=== PATIENT | male | born 1980 | race African-American/Black ===

== ENCOUNTER 2018-04-26 13:23 | Emergency (ER) | payer BC ==
[2018-04-26 13:53] VITALS: BP 123/74
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
--- NOTE | 2018-04-26 15:37 | RADIOLOGY REPORT (SQ) ---
EXAM DESCRIPTION: CHEST 2 VIEWS COMPLETED DATE/TIME: 04/26/2018 3:08 pm REASON FOR STUDY: cough congestion short of breath COMPARISON: Chest x-ray 02/16/2014, 07/26/2011. EXAM PARAMETERS: NUMBER OF VIEWS: two views TECHNIQUE: Digital Frontal and Lateral radiographic views of the chest acquired. RADIATION DOSE: NA LIMITATIONS: none FINDINGS: LUNGS AND PLEURA: Postsurgical changes are again noted at the right hemithorax. No consol idation, pleural effusion or pneumothorax. MEDIASTINUM AND HILAR STRUCTURES: No masses or contour abnormalities. HEART AND VASCULAR STRUCTURES: Heart normal size. No evidence for failure. BONES: There are remote right-sided rib fractures. HARDWARE: Surgical clips at the right hemithorax. IMPRESSION: No acute radiographic finding in the chest. TECHNICAL DOCUMENTATION: JOB ID: [id number] 2010 [employer]- All Rights Reserved Reading location - IP/workstation name: [email or web address]
[2018-04-26] MEDS ORDERED: PREDNISONE 20 MG TABLET PO ONE (15:54)
== END 2018-04-26 16:01 | disposition home or self-care (01) ==
LOC: ER 13:23
DX: J06.9 Acute upper respiratory infection, unspecified (principal); R05 Cough; R09.81 Nasal congestion; R06.02 Shortness of breath; M79.10 Myalgia, unspecified site; J34.89 Other specified disorders of nose and nasal sinuses; R09.89 Other specified symptoms and signs involving the circulatory and respiratory systems; Z87.891 Personal history of nicotine dependence; J45.909 Unspecified asthma, uncomplicated
CPT/HCPCS: 99283; 71046; J7512

== ENCOUNTER 2019-04-14 13:27 | Emergency (ER) | payer OTHER, BC ==
[2019-04-14 14:52] VITALS: BP 104/65
[2019-04-14] MEDS ORDERED: OXYCODONE-ACETAMINOPHEN 5-325 MG TABLET PO ONE (15:02)
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
== END 2019-04-14 17:00 | disposition home or self-care (01) ==
LOC: ER 13:27
DX: S16.1XXA Strain of muscle, fascia and tendon at neck level, initial encounter (principal); S29.019A Strain of muscle and tendon of unspecified wall of thorax, initial encounter; S39.012A Strain of muscle, fascia and tendon of lower back, initial encounter; M54.2 Cervicalgia; M54.9 Dorsalgia, unspecified; V69.9XXA Occupant (driver) (passenger) of heavy transport vehicle injured in unspecified traffic accident, initial encounter; J45.909 Unspecified asthma, uncomplicated
CPT/HCPCS: 72070; 72110; 72125; 99284

== ENCOUNTER 2019-09-30 16:09 | Observation (INO) | payer BC, OTHER ==
--- NOTE | 2019-09-30 16:32 | ER Document Report ---
ED NIH Stroke Scale - NIH Stroke Scale When completed:: Before Alteplase *: 1. NIH scale should be completed with appropriate accompanying assessment tools. *: 2. The NIH should reflect what the patient is capable of doing and should not be coached by the clinician. 1a. Level of Consciousness: 0=Alert;keenly responsive -: 1=Drowsy -: 2=Obtunded -: 3=Coma/unresponsive or reflex to noxious stimuli. 1a. Responses: 0 1b. Orientation Questions: a. What month is it? -: b. How old are you? -: 0=Answers both questions correctly. -: 1=Answers one question correctly or patient is intubated or has orotracheal trauma. -: 2=Answers neither question correctly. 1b. Responses: 0 1c. Response to commands: a. Open and close eyes? -: b. Technical Lead and release hand? -: Credit is given despite weakness. Demonstration of task is permitted. Substitute command if hands cannot be used. -: 0=Performs both tasks correctly -: 1=Performs one task correctly -: 2=Performs neither task correctly 1c. Responses: 0 2. Gaze: Establish eye contact and instruct patient to "Follow my finger" -: 0=Normal -: 1=Partial gaze palsy. Gaze is abnormal in one or both eyes, but where forced deviation or total gaze paresis is not present. -: 2=Forced deviation or total gaze paresis. 2. Responses: 0 3. Visual Sy: Sees fingers in all four quadrants. -: 0=No visual loss. -: 1=Partial hemianopsia. -: 2=Complete hemianopsia. -: 3=Bilateral hemianopsia (including Cortical blindness) 3. Responses: 0 4. Facial Movement: Instruct patient to: -: a. Show me your teeth -: b. Raise your eyebrows -: c. Close your eyes -: d. Smile -: 0=Normal symmetrical movement -: 1=Minor paralysis (flattened nasolabial fold, asymmetry on smiling). -: 2=Partial paralysis (total or near total paralysis of lower face). -: 3=Complete paralysis of upper and lower face 4. Responses: 0 5. Motor functions (left arm): Alternate sides and extend each arm with palms down (90 degrees if sitting or 45 degrees for supine). -: 0=No drift;limb holds for full 10 seconds. -: 1=Drift; limb holds but drifts down before full 10 seconds, but does not hit bed. -: 2=Some effort against gravity; limb cannot get to or maintain position. -: 3=No effort against gravity; limb falls. -: 4=No movement. -: UN=Amputation, joint fusion, explain in comments. 5. Responses (left arm): 0 5. Motor Functions (right arm): Alternate sides and extend each arm with palms down (90 degrees if sitting or 45 degrees for supine). -: 0=No drift;limb holds for full 10 seconds. -: 1=Drift; limb holds but drifts down before full 10 seconds, but does not hit bed. -: 2=Some effort against gravity; limb cannot get to or maintain position. -: 3=No effort against gravity; limb falls. -: 4=No movement. -: UN=Amputation, joint fusion, explain in comments. 5. Responses (right arm): 1 6. Motor Functions (left leg): With patient lying supine, alternate sides and extend each leg (30 degrees always while supine). -: 0=No drift, leg holds position for full 5 seconds -: 1=Drift; leg falls before full 5 seconds but does not hit bed. -: 2=Some effort against gravity, leg falls to bed but some effort against gravity. -: 3=No effort against gravity, leg falls to bed immediately. -: 4=No movement. -: UN=Amputation, joint fusion; explain in comments. 6. Responses (left leg): 0 6. Motor Functions (right leg): With patient lying supine, alternate sides and extend each leg (30 degrees always while supine). -: 0=No drift, leg holds position for full 5 seconds -: 1=Drift; leg falls before full 5 seconds but does not hit bed. -: 2=Some effort against gravity, leg falls to bed but some effort against gravity. -: 3=No effort against gravity, leg falls to bed immediately. -: 4=No movement. -: UN=Amputation, joint fusion; explain in comments. 6. Responses (right leg): 1 7. Limb Ataxia: With eyes open instruct patient to: -: a. "Touch your finger to your nose". -: b. "Touch your heel to your bull" -: 0=Absent -: 1=Present in one limb. -: 2=Present in two limbs. -: UN=Amputation or joint fusion; explain in comments. 7. Responses: 1 7. If ataxia present choose as appropriate: Right arm 8. Sensory: Test sensation using pinprick or noxious stimuli. Test as many body parts as possible. -: 0=Normal;no sensory loss -: 1=Mile to moderate sensory loss (patient feels pin prick but is less sharp on affected side). -: 2=Severe or total sensory loss. 8. Responses: 1 9. Best Language: Instruct patient to: -: a. "Describe what you see in this picture." -: b. "Name the items in this picture." -: c. "Read these sentences." -: 0=No aphasia, normal -: 1=Mild to moderate aphasia. -: 2=Severe aphasia -: 3=Mute, global aphasia, no usable speech or auditory comprehension. 9. Responses: 0 10. Articulation, Dysarthia: Instruct patient to: -: "Read these words" or "Repeat these words" -: 0=Normal -: 1=Mild to moderate; patient may slur some words but can be understood without difficulty. -: 2=Severe; patients speech so slurred as to be unintelligible in the absence of dysphasia. -: UN=Intubated or other physical barrier, explain in comments. 10. Responses: 0 11. Extinction or inattention: 0=No abnormality -: 1= Visual, tactile, auditory, spatial, or personal inattention or extinction to bilateral simulation in one or the sensory modalities. -: 2=Profound antonio-inattention or antonio-inattention to more than one modality; does not recognize own hand. Total Score: 4
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
[2019-09-30] MEDS ORDERED: NORMAL SALINE 1000 ML 1,000 ML IV ONE (16:42)
[2019-09-30 17:32] LABS: PARTIAL THROMBOPLASTIN TIME 28.6 SEC (23.5-35.8)
--- NOTE | 2019-09-30 17:36 | RADIOLOGY REPORT (SQ) ---
EXAM DESCRIPTION: CHEST SINGLE VIEW IMAGES COMPLETED DATE/TIME: 09/30/2019 5:20 pm REASON FOR STUDY: HTN, Asthma COMPARISON: None. EXAM PARAMETERS: NUMBER OF VIEWS: One view. TECHNIQUE: Single frontal radiographic view of the chest acquired. RADIATION DOSE: NA LIMITATIONS: None. FINDINGS: LUNGS AND PLEURA: Old rib fractures. No acute infiltrate, effusion, or mass. MEDIASTINUM AND HILAR STRUCTURES: No masses. Contour normal. HEART AND VASCULAR STRUCTURES: Heart normal in size. Normal vasculature. BONES: No acute findings. HARDWARE: Surgical clips. OTHER: No other significant finding. IMPRESSION: Old rib fractures. No acute cardiopulmonary findings. TECHNICAL DOCUMENTATION: JOB ID: [id number] 2010 [employer]- All Rights Reserved Reading location - IP/workstation name: [email or web address]
[2019-09-30 17:39] LABS: INTERNATIONAL RATION (INR) 0.99; PROTHROMBIN TIME 13.1 SEC (11.4-15.4)
[2019-09-30 17:40] LABS: ABSOLUTE EOSINOPHILS # (AUTO) 0.2 10^3/uL (0.0-0.6); ABSOLUTE LYMPHOCYTES (AUTO) 1.5 10^3/uL (0.5-4.7); ABSOLUTE MONOCYTES (AUTO) 0.5 10^3/uL (0.1-1.4); BASOPHILS % (AUTO) 0.9 % (0-2); EOSINOPHILS % (AUTO) 3.7 % (0-6); HEMATOCRIT 42.3 % (37.9-51.0); HEMOGLOBIN 14.5 g/dL (13.5-17.0); LYMPHOCYTES % (AUTO) 36.1 % (13-45); MEAN CORPUSCULAR HEMOGLOBIN 30.8 pg (27.0-33.4); MEAN CORPUSCULAR HGB CONC 34.3 g/dL (32.0-36.0); MEAN CORPUSCULAR VOLUME 90 fl (80-97); MONOCYTES % (AUTO) 12.2 % (3-13); PLATELET COUNT 262 10^3/uL (150-450); RED BLOOD COUNT 4.71 10^6/uL (4.35-5.55); RED CELL DISTRIBUTION WIDTH 12.5 % (11.5-14.0); SEGMENTED NEUTROPHILS % (AUTO) 47.1 % (42-78); TOTAL CELLS COUNTED % (AUTO) 100 %; WHITE BLOOD COUNT 4.2 10^3/uL (4.0-10.5)
--- NOTE | 2019-09-30 17:42 | RADIOLOGY REPORT (SQ) ---
EXAM DESCRIPTION: CT HEAD WITHOUT; CTA HEAD; CTA NECK IMAGES COMPLETED DATE/TIME: 09/30/2019 3:58 pm; 09/30/2019 3:59 pm REASON FOR STUDY: possible stroke possible stroke. COMPARISON: CT cervical spine, 04/14/2019. CT chest, 05/21/2011. TECHNIQUE: Axial images acquired through the brain without and with intravenous contrast. Images re viewed with bone, brain and subdural windows. Additional sagittal and coronal reconstructions were g enerated. Images stored on PACS. CT angio [place] was performed. Thin section postcontrast CT images were reviewed with maxim um intensity projected images of the [place] in multiple orientations. Axial dynamic scanning technique with dynamic contrast enhancement through the extra-cranial carotid and vertebral arteries. Multiplanar reconstruction. 3-D MIPS and Volume-rendered images acquired at the workstation and saved to PACS. Images are reviewed in soft tissue, bone, lung windows. All CT scanners at this facility use dose modulation, iterative reconstruction, and/or weight based d osing when appropriate to reduce radiation dose to as low as reasonably achievable (ALARA). [facility]: Dose Right [facility]: CareDose [facility]: Dose Right [facility]: Teradose 4D [facility]: [id number] CONTRAST TYPE AND DOSE: contrast/concentration: Isovue 350.00 mmol/ml; Total Contrast Delivered: 70. 0 ml; Total Saline Delivered: 56.0 ml RENAL FUNCTION: None required. The patient is less than 50 years old. RADIATION DOSE: CT Rad equipment meets quality standard of care and radiation dose reduction techniq ues were employed. CTDIvol: 16.4 - 53.2 mGy. DLP: 1736 mGy-cm.. LIMITATIONS: None. FINDINGS: VENTRICLES: Normal size and contour. CEREBRUM: No masses. No hemorrhage. No midline shift. No evidence for acute infarction. Normal gra y/white matter differentiation. No areas of low density in the white matter. CEREBELLUM: No masses. No hemorrhage. No alteration of density. No evidence for acute infarction. No enhancing lesions. EXTRA-AXIAL SPACES: No fluid collections. No enhancing lesions. ORBITS AND GLOBE: No intra- or extraconal masses. Normal contour of globe without masses. CALVARIUM: No fracture. PARANASAL SINUSES: No fluid or mucosal thickening. SOFT TISSUES: No mass or hematoma. OTHER: No other significant finding. CTA COW: [place]: The anterior, middle, posterior cerebral arteries are all patent. No evidence of a neurysm or focal stenosis. POSTERIOR CIRCULATION: The distal vertebral arteries are patent as is the basilar artery. No aneurysm . OTHER: No other significant finding. CTA NECK: AORTIC ARCH: Common origin of the right brachiocephalic and left common carotid artery, a normal vari ant. Bilateral subclavian arteries are patent. No dissection. RIGHT CAROTIDS: Patent common, internal and external carotid arteries without suggestion of significa nt stenosis or irregular plaque. No dissection. RIGHT VERTEBRAL: Patent. No dissection. LEFT CAROTIDS: Patent common, internal and external carotid arteries without suggestion of significan t stenosis or irregular plaque. No dissection. LEFT VERTEBRAL: Patent. No dissection. OTHER: A small nodule with surrounding ground-glass attenuation is stable since previous CT of the ne ck in April 2019, and although present on earlier CT of the chest, has increased slightly in [facility] since previous CT chest 05/21/2011. There are surgical clips at the isthmus thyroid gland. Kulwant ateral thyroid lobes have normal homogeneous appearance. OTHER: 3-D reconstructions confirm findings. IMPRESSION: 1. No acute intracranial hemorrhage, mass, or evidence of acute territorial infarct. 2. No intracranial aneurysm, stenosis, or branch occlusion. 3. No significant stenosis of the internal carotid arteries by NASCET criteria. 4. Nodule and ground-glass attenuation in the right upper lobe has increased in prominence since prev ious CT of the chest in 2011. A nonemergent follow-up CT of the chest in recommended for complete ch aracterization and evaluation. EVIDENCE OF ACUTE STROKE: NO. TECHNICAL DOCUMENTATION: JOB ID: [id number] Quality ID # [id number]: Final reports with documentation of one or more dose reduction techniques (e.g., Au tomated exposure control, adjustment of the mA and/or kV according to patient size, use of iterative reconstruction technique) 2010 [employer]- All Rights Reserved Reading location - IP/workstation name: [email or web address]
--- NOTE | 2019-09-30 17:42 | RADIOLOGY REPORT (SQ) ---
EXAM DESCRIPTION: CT HEAD WITHOUT; CTA HEAD; CTA NECK IMAGES COMPLETED DATE/TIME: 09/30/2019 3:58 pm; 09/30/2019 3:59 pm REASON FOR STUDY: possible stroke possible stroke. COMPARISON: CT cervical spine, 04/14/2019. CT chest, 05/21/2011. TECHNIQUE: Axial images acquired through the brain without and with intravenous contrast. Images re viewed with bone, brain and subdural windows. Additional sagittal and coronal reconstructions were g enerated. Images stored on PACS. CT angio [place] was performed. Thin section postcontrast CT images were reviewed with maxim um intensity projected images of the [place] in multiple orientations. Axial dynamic scanning technique with dynamic contrast enhancement through the extra-cranial carotid and vertebral arteries. Multiplanar reconstruction. 3-D MIPS and Volume-rendered images acquired at the workstation and saved to PACS. Images are reviewed in soft tissue, bone, lung windows. All CT scanners at this facility use dose modulation, iterative reconstruction, and/or weight based d osing when appropriate to reduce radiation dose to as low as reasonably achievable (ALARA). [facility]: Dose Right [facility]: CareDose [facility]: Dose Right [facility]: Teradose 4D [facility]: [employer] CONTRAST TYPE AND DOSE: contrast/concentration: Isovue 350.00 mmol/ml; Total Contrast Delivered: 70. 0 ml; Total Saline Delivered: 56.0 ml RENAL FUNCTION: None required. The patient is less than 50 years old. RADIATION DOSE: CT Rad equipment meets quality standard of care and radiation dose reduction techniq ues were employed. CTDIvol: 16.4 - 53.2 mGy. DLP: 1736 mGy-cm.. LIMITATIONS: None. FINDINGS: VENTRICLES: Normal size and contour. CEREBRUM: No masses. No hemorrhage. No midline shift. No evidence for acute infarction. Normal gra y/white matter differentiation. No areas of low density in the white matter. CEREBELLUM: No masses. No hemorrhage. No alteration of density. No evidence for acute infarction. No enhancing lesions. EXTRA-AXIAL SPACES: No fluid collections. No enhancing lesions. ORBITS AND GLOBE: No intra- or extraconal masses. Normal contour of globe without masses. CALVARIUM: No fracture. PARANASAL SINUSES: No fluid or mucosal thickening. SOFT TISSUES: No mass or hematoma. OTHER: No other significant finding. CTA COW: [place]: The anterior, middle, posterior cerebral arteries are all patent. No evidence of a neurysm or focal stenosis. POSTERIOR CIRCULATION: The distal vertebral arteries are patent as is the basilar artery. No aneurysm . OTHER: No other significant finding. CTA NECK: AORTIC ARCH: Common origin of the right brachiocephalic and left common carotid artery, a normal vari ant. Bilateral subclavian arteries are patent. No dissection. RIGHT CAROTIDS: Patent common, internal and external carotid arteries without suggestion of significa nt stenosis or irregular plaque. No dissection. RIGHT VERTEBRAL: Patent. No dissection. LEFT CAROTIDS: Patent common, internal and external carotid arteries without suggestion of significan t stenosis or irregular plaque. No dissection. LEFT VERTEBRAL: Patent. No dissection. OTHER: A small nodule with surrounding ground-glass attenuation is stable since previous CT of the ne ck in April 2019, and although present on earlier CT of the chest, has increased slightly in [facility] CT [facility] 05/21/2011. There are surgical clips at the isthmus thyroid gland. Kulwant ateral thyroid lobes have normal homogeneous appearance. OTHER: 3-D reconstructions confirm findings. IMPRESSION: 1. No acute intracranial hemorrhage, mass, or evidence of acute territorial infarct. 2. No intracranial aneurysm, stenosis, or branch occlusion. 3. No significant stenosis of the internal carotid arteries by NASCET criteria. 4. Nodule and ground-glass attenuation in the right upper lobe has increased in prominence since prev ious CT of the chest in 2011. A nonemergent follow-up CT of the chest in recommended for complete ch aracterization and evaluation. EVIDENCE OF ACUTE STROKE: NO. TECHNICAL DOCUMENTATION: JOB ID: [id number] Quality ID # [id number]: Final reports with documentation of one or more dose reduction techniques (e.g., Au tomated exposure control, adjustment of the mA and/or kV according to patient size, use of iterative reconstruction technique) 2010 [employer]- All Rights Reserved Reading location - IP/workstation name: [email or web address]
--- NOTE | 2019-09-30 17:42 | RADIOLOGY REPORT (SQ) ---
EXAM DESCRIPTION: CT HEAD WITHOUT; CTA HEAD; CTA NECK IMAGES COMPLETED DATE/TIME: 09/30/2019 3:58 pm; 09/30/2019 3:59 pm REASON FOR STUDY: possible stroke possible stroke. COMPARISON: CT cervical spine, 04/14/2019. CT chest, 05/21/2011. TECHNIQUE: Axial images acquired through the brain without and with intravenous contrast. Images re viewed with bone, brain and subdural windows. Additional sagittal and coronal reconstructions were g enerated. Images stored on PACS. CT angio tling[place] & [place] was performed. Thin section postcontrast CT images were reviewed with maxim um intensity projected images of the [place] in multiple orientations. Axial dynamic scanning technique with dynamic contrast enhancement through the extra-cranial carotid and vertebral arteries. Multiplanar reconstruction. 3-D MIPS and Volume-rendered images acquired at the workstation and saved to PACS. Images are reviewed in soft tissue, bone, lung windows. All CT scanners at this facility use dose modulation, iterative reconstruction, and/or weight based d osing when appropriate to reduce radiation dose to as low as reasonably achievable (ALARA). [facility]: Dose Right [facility]: CareDose [facility]: Dose Right [facility]: Teradose 4D [facility]: Ombitron CONTRAST TYPE AND DOSE: contrast/concentration: Isovue 350.00 mmol/ml; Total Contrast Delivered: 70. 0 ml; Total Saline Delivered: 56.0 ml RENAL FUNCTION: None required. The patient is less than 50 years old. RADIATION DOSE: CT Rad equipment meets quality standard of care and radiation dose reduction techniq ues were employed. CTDIvol: 16.4 - 53.2 mGy. DLP: 1736 mGy-cm.. LIMITATIONS: None. FINDINGS: VENTRICLES: Normal size and contour. CEREBRUM: No masses. No hemorrhage. No midline shift. No evidence for acute infarction. Normal gra y/white matter differentiation. No areas of low density in the white matter. CEREBELLUM: No masses. No hemorrhage. No alteration of density. No evidence for acute infarction. No enhancing lesions. EXTRA-AXIAL SPACES: No fluid collections. No enhancing lesions. ORBITS AND GLOBE: No intra- or extraconal masses. Normal contour of globe without masses. CALVARIUM: No fracture. PARANASAL SINUSES: No fluid or mucosal thickening. SOFT TISSUES: No mass or hematoma. OTHER: No other significant finding. CTA COW: [place] OF [place]: The anterior, middle, posterior cerebral arteries are all patent. No evidence of a neurysm or focal stenosis. POSTERIOR CIRCULATION: The distal vertebral arteries are patent as is the basilar artery. No aneurysm . OTHER: No other significant finding. CTA NECK: AORTIC ARCH: Common origin of the right brachiocephalic and left common carotid artery, a normal vari ant. Bilateral subclavian arteries are patent. No dissection. RIGHT CAROTIDS: Patent common, internal and external carotid arteries without suggestion of significa nt stenosis or irregular plaque. No dissection. RIGHT VERTEBRAL: Patent. No dissection. LEFT CAROTIDS: Patent common, internal and external carotid arteries without suggestion of significan t stenosis or irregular plaque. No dissection. LEFT VERTEBRAL: Patent. No dissection. OTHER: A small nodule with surrounding ground-glass attenuation is stable since previous CT of the ne ck in April 2019, and although present on earlier CT of the chest, has increased slightly in [facility] since previous CT chest 05/21/2011. There are surgical clips at the isthmus thyroid gland. [place] ateral thyroid lobes have normal homogeneous appearance. OTHER: 3-D reconstructions confirm findings. IMPRESSION: 1. No acute intracranial hemorrhage, mass, or evidence of acute territorial infarct. 2. No intracranial aneurysm, stenosis, or branch occlusion. 3. No significant stenosis of the internal carotid arteries by NASCET criteria. 4. Nodule and ground-glass attenuation in the right upper lobe has increased in prominence since prev ious CT of the chest in 2011. A nonemergent follow-up CT of the chest in recommended for complete ch aracterization and evaluation. EVIDENCE OF ACUTE STROKE: NO. TECHNICAL DOCUMENTATION: JOB ID: [id number] Quality ID # [id number]: Final reports with documentation of one or more dose reduction techniques (e.g., Au tomated exposure control, adjustment of the mA and/or kV according to patient size, use of iterative reconstruction technique) 2010 [employer]- All Rights Reserved Reading location - IP/workstation name: [email or web address]
[2019-09-30 18:00] LABS: ALBUMIN 3.9 g/dL (3.5-5.0); ALKALINE PHOSPHATASE 50 U/L (38-126); ANION GAP 7 (5-19); ASPARTATE AMINO TRANSFERASE 22 U/L (17-59); BILIRUBIN,TOTAL 1.2 mg/dL (0.2-1.3); BLOOD UREA NITROGEN 13 mg/dL (7-20); CALCIUM 8.9 mg/dL (8.4-10.2); CARBON DIOXIDE 25 mmol/L (22-30); CHLORIDE 104 mmol/L (98-107); CREATINE KINASE 196 U/L (55-170); GLUCOSE 122 mg/dL (75-110); POTASSIUM 3.6 mmol/L (3.6-5.0); TOTAL PROTEIN 6.6 g/dL (6.3-8.2)
[2019-09-30 18:12] LABS: CREATINE KINASE MB 0.78 ng/mL (<4.55)
[2019-09-30 18:13] LABS: TROPONIN I < 0.012 ng/mL
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
[2019-09-30] MEDS ORDERED: ASPIRIN 81 MG TABLET, CHEWABLE PO SCH (22:00)
[2019-09-30] MEDS ORDERED: IPRATROPIUM/ALBUTEROL 0.5-2.5 MG/3 ML AMPUL NEB PRN (23:45)
--- NOTE | 2019-10-01 01:16 | EKG REPORT ---
SEVERITY:- NORMAL ECG - SINUS RHYTHM : Confirmed by: Lanny Novoa 01-Oct-2019 01:15:33
[2019-10-01 06:42] LABS: CHOLESTEROL 182.66 mg/dL (0-200); TRIGLYCERIDES 216 mg/dL (<150)
[2019-10-01 06:53] LABS: DIRECT LDL 107 mg/dL (<100)
[2019-10-01 06:58] LABS: VLDL CHOLESTEROL 43.2 mg/dL (10-31)
--- NOTE | 2019-10-01 09:48 | RADIOLOGY REPORT (SQ) ---
EXAM DESCRIPTION: CAROTID DOPPLER IMAGES COMPLETED DATE/TIME: 09/30/2019 7:55 pm REASON FOR STUDY: tia COMPARISON: None. TECHNIQUE: Grayscale ultrasound, Doppler velocity and spectra, and color Doppler images acquired of the extra-cranial carotid and vertebral arteries. Images stored on PACS. LIMITATIONS: None. FINDINGS: RIGHT CAROTID CCA Velocities: Within normal limits. ICA Velocities Peak systolic 0.84 m/s. End diastolic 0.29 m/s. Proximal ICA/CCA peak systolic ratio 0.8. Spectra normal. No significant plaque. LEFT CAROTID CCA Velocities: Within normal limits. ICA Velocities Peak systolic 0.72 m/s. End diastolic 0.42 m/s. Proximal ICA/CCA peak systolic ratio 0.6. Spectra normal. No significant plaque. VERTEBRAL ARTERIES: Antegrade flow. Normal waveforms. SUBCLAVIAN ARTERIES: No finding. OTHER: No other significant finding. IMPRESSION: NO HEMODYNAMICALLY SIGNIFICANT STENOSIS. COMMENT: Quality ID #[id number]: Velocity criteria are extrapolated from the diameter data as defined by t he Society of Radiologists in Ultrasound Consensus Conference. Radiology 2003: 229; 340-346. TECHNICAL DOCUMENTATION: JOB ID: [id number] 2010 [employer]- All Rights Reserved Reading location - IP/workstation name: [email or web address]
[2019-10-01 11:32] VITALS: BP 128/78
--- NOTE | 2019-10-01 17:08 | PDOC DISCHARGE SUMMARY ---
Impression - Admit/DC Date/PCP Admission Date/Primary Care Provider: 09/30/19 19:40 GUSTAVO KIRAN PA-C Discharge Date: 10/01/19 - Discharge Diagnosis (1) Transient ischemic attack (TIA) Is this a current diagnosis for this admission?: Yes (2) Hypertension Is this a current diagnosis for this admission?: Yes (3) Asthma Is this a current diagnosis for this admission?: Yes - Additional Information Resuscitation Status: Full Code Discharge Diet: Cardiac Discharge Activity: Activity As Tolerated Referrals: GUSTAVO KIRAN PA-C [Primary Care Provider] - 10/08/19 11:45 am Home Medications: Lisinopril/Hydrochlorothiazide [Lisinopril-Hctz 20-12.5 mg Tab] 1 each PO DAILY 04/14/19 Albuterol Sulfate [Ventolin 0.083% Neb 2.5 mg/3 mL Ampul] 1 vial NEB BID 09/30/19 Ipratropium [place] [Atrovent 0.02% Neb 0.5 mg/2.5 ml Ampul] 1 vial PO BID 09/30/19 Aspirin [Aspirin 81 mg Chewable Tablet] 81 mg PO QHS tab.chew 10/01/19 History of Present Illiness History of Present Illness: BRIGID LOWERY is a 38 year old male with a history of hypertension and asthma who had abrupt onset of right-sided weakness as he was getting out of his truck this afternoon. He said his leg felt weak and he felt like he could not use his right hand. He said he tried to sign something earlier and was having a hard time using his right hand. He said this episode lasted for about 3 hours and then stopped. He said he has just a little bit of a headache now. He did not have any blurred vision. No facial droop or slurred speech. He has not tried to chew or swallow anything so he does note if he is having problems with that. He has not had any trouble with balance. His blood pressure was a little bit elevated but not dramatically so, and it actually came down a little bit after he was in the ER for a little bit. Head CT was negative. Lab work-up was negative. He has no family history of stroke. He does not smoke. He has no known history of hyperlipidemia. He does not take an aspirin every day at home. He is not diabetic. He does not have any history of chronic kidney disease. Hospital Course Hospital Course: His carotid Doppler was negative. As previously stated, we could not do an MRI because of his [place] filter. His symptoms had completely resolved in the ER. His blood pressure was very good. His LDL was elevated, but only barely so. I recommended that he avoid refined sugars and saturated fats. He said that he has been doing a vegan diet recently. Because his LDL was within just a few points of his goal, I decided not to start him on a statin medication. I did recommend that he take a baby aspirin every day. He will follow-up with his primary care provider within 1 week. His labs and examination were reassuring and he was discharged in stable condition. Physical Exam Vital Signs: Temp Pulse Resp BP Pulse Ox 97.6 F 62 18 128/78 H 93 10/01/19 11:28 10/01/19 11:28 10/01/19 11:28 10/01/19 11:28 10/01/19 11:28 Intake & Output 09/30/19 10/01/19 10/02/19 06:59 06:59 06:59 Intake Total 1000 Output Total 0 Balance 1000 Weight 115 kg General appearance: PRESENT: no acute distress, cooperative, obese Respiratory exam: PRESENT: clear to auscultation chao, symmetrical, unlabored. ABSENT: accessory muscle use, chest wall tenderness, crackles, prolonged expiratory phas, rhonchi, tachypnea, wheezes Cardiovascular exam: PRESENT: RRR, +S1, +S2 Pulses: PRESENT: normal carotid pulses Vascular exam: PRESENT: normal capillary refill GI/Abdominal exam: PRESENT: normal bowel sounds, soft. ABSENT: distended, guarding, rebound, tenderness Extremities exam: ABSENT: clubbing, pedal edema Musculoskeletal exam: PRESENT: ambulatory, normal inspection. ABSENT: deformity Neurological exam: PRESENT: alert, awake, oriented to person, oriented to place, oriented to time, oriented to situation, CN II-XII grossly intact, normal gait. ABSENT: motor sensory deficit Psychiatric exam: PRESENT: appropriate affect, normal mood Skin exam: PRESENT: dry, warm Results Laboratory Results: WBC 4.2 10^3/uL (4.0-10.5) 09/30/19 16:43 RBC 4.71 10^6/uL (4.35-5.55) 09/30/19 16:43 Hgb 14.5 g/dL (13.5-17.0) 09/30/19 16:43 Hct 42.3 % (37.9-51.0) 09/30/19 16:43 MCV 90 fl (80-97) 09/30/19 16:43 MCH 30.8 pg (27.0-33.4) 09/30/19 16:43 MCHC 34.3 g/dL (32.0-36.0) 09/30/19 16:43 RDW 12.5 % (11.5-14.0) 09/30/19 16:43 Plt Count 262 10^3/uL (150-450) 09/30/19 16:43 Lymph % (Auto) 36.1 % (13-45) 09/30/19 16:43 [place] % (Auto) 12.2 % (3-13) 09/30/19 16:43 Eos % (Auto) 3.7 % (0-6) 09/30/19 16:43 Baso % (Auto) 0.9 % (0-2) 09/30/19 16:43 Absolute Neuts (auto) 2.0 10^3/uL (1.7-8.2) 09/30/19 16:43 Absolute Lymphs (auto) 1.5 10^3/uL (0.5-4.7) 09/30/19 16:43 Absolute Monos (auto) 0.5 10^3/uL (0.1-1.4) 09/30/19 16:43 Absolute Eos (auto) 0.2 10^3/uL (0.0-0.6) 09/30/19 16:43 Absolute Basos (auto) 0.0 10^3/uL (0.0-0.2) 09/30/19 16:43 Seg Neutrophils % 47.1 % (42-78) 09/30/19 16:43 PT 13.1 SEC (11.4-15.4) 09/30/19 16:43 INR 0.99 09/30/19 16:43 APTT 28.6 SEC (23.5-35.8) 09/30/19 16:43 Sodium 136.3 mmol/L (137-145) L 09/30/19 16:43 Potassium 3.6 mmol/L (3.6-5.0) 09/30/19 16:43 Chloride 104 mmol/L (98-107) 09/30/19 16:43 Carbon Dioxide 25 mmol/L (22-30) 09/30/19 16:43 Anion Gap 7 (5-19) 09/30/19 16:43 BUN 13 mg/dL (7-20) 09/30/19 16:43 Creatinine 1.14 mg/dL (0.52-1.25) 09/30/19 16:43 Est GFR ( Amer) > 60 (>60) 09/30/19 16:43 Est GFR (MDRD) Non-Af > 60 (>60) 09/30/19 16:43 Glucose 122 mg/dL (75-110) H 09/30/19 16:43 POC Glucose 127 mg/dL (70-110) H 10/01/19 11:01 Calcium 8.9 mg/dL (8.4-10.2) 09/30/19 16:43 Total Bilirubin 1.2 mg/dL (0.2-1.3) 09/30/19 16:43 Direct Bilirubin 0.0 mg/dL (0.0-0.4) 09/30/19 16:43 Neonat Total Bilirubin Not Reportable 09/30/19 16:43 Neonat Direct Bilirubin Not Reportable 09/30/19 16:43 Neonat Indirect Bili Not Reportable 09/30/19 16:43 AST 22 U/L (17-59) 09/30/19 16:43 ALT 19 U/L (<50) 09/30/19 16:43 Alkaline Phosphatase 50 U/L (38-126) 09/30/19 16:43 Creatine Kinase 196 U/L (55-170) H 09/30/19 16:43 CK-MB (CK-2) 0.78 ng/mL (<4.55) 09/30/19 16:43 Troponin I < 0.012 ng/mL 09/30/19 16:43 Total Protein 6.6 g/dL (6.3-8.2) 09/30/19 16:43 Albumin 3.9 g/dL (3.5-5.0) 09/30/19 16:43 Triglycerides 216 mg/dL (<150) H 10/01/19 06:14 Cholesterol 182.66 mg/dL (0-200) 10/01/19 06:14 LDL Cholesterol Direct 107 mg/dL (<100) H 10/01/19 06:14 VLDL Cholesterol 43.2 mg/dL (10-31) H 10/01/19 06:14 HDL Cholesterol 40 mg/dL (>40) 10/01/19 06:14 09/30/19 16:43 CK-MB (CK-2) 0.78 Troponin I < 0.012 Impressions: Carotid Doppler Study 09/30/19 00:00 IMPRESSION: NO HEMODYNAMICALLY SIGNIFICANT STENOSIS. Head CT 09/30/19 00:00 IMPRESSION: 1. No acute intracranial hemorrhage, mass, or evidence of acute territorial infa rct. 2. No intracranial aneurysm, stenosis, or branch occlusion. 3. No significant stenosis of the internal carotid arteries by NASCET criteria. 4. Nodule and ground-glass attenuation in the right upper lobe has increased in prominence since previous CT of the chest in 2011. A nonemergent follow-up CT of the chest in recommended for complete characterization and evaluation. EVIDENCE OF ACUTE STROKE: NO. Head CTA 09/30/19 00:00 IMPRESSION: 1. No acute intracranial hemorrhage, mass, or evidence of acute territorial infarct. 2. No intracranial aneurysm, stenosis, or branch occlusion. 3. No significant stenosis of the internal carotid arteries by NASCET criteria. 4. Nodule and ground-glass attenuation in the right upper lobe has increased in prominence since previous CT of the chest in 2011. A nonemergent follow-up CT of the chest in recommended for complete characterization and evaluation. EVIDENCE OF ACUTE STROKE: NO. Neck CTA 09/30/19 00:00 IMPRESSION: 1. No acute intracranial hemorrhage, mass, or evidence of acute territorial infarct. 2. No intracranial aneurysm, stenosis, or branch occlusion. 3. No significant stenosis of the internal carotid arteries by NASCET criteria. 4. Nodule and ground-glass attenuation in the right upper lobe has increased in prominence since previous CT of the chest in 2011. A nonemergent follow-up CT of the chest in recommended for complete characterization and evaluation. EVIDENCE OF ACUTE STROKE: NO. Chest X-Ray 09/30/19 17:01 IMPRESSION: Old rib fractures. No acute cardiopulmonary findings. Plan Time Spent: Greater than 30 Minutes Stroke Is this a Stroke Patient?: No Acute Heart Failure - Is this a Heart Failure Patient?: No
== END 2019-10-01 13:05 | disposition home or self-care (01) ==
LOC: ER 16:09 → EH 19:40 → 3S 22:32
PROVIDERS: ADMIT Family Medicine; ATTEND Family Medicine
DX: G45.9 Transient cerebral ischemic attack, unspecified (principal); I10 Essential (primary) hypertension; J45.20 Mild intermittent asthma, uncomplicated; E66.9 Obesity, unspecified; Z79.899 Other long term (current) drug therapy; Z86.711 Personal history of pulmonary embolism; Z95.828 Presence of other vascular implants and grafts; Z87.828 Personal history of other (healed) physical injury and trauma
CPT/HCPCS: 93005; 99285; 96360; 36415 ×2; 82553; 82962 ×2; 82550; 85025; 85610; 85730; 80053; 84484; 80061; 93880; 71045; 70450; 70496; 70498; 93010; 94640; J7030; G0378